=== PATIENT | female | born 1985 | race American Indian/Alaskan Native ===

== ENCOUNTER 2016-08-02 04:04 | Emergency (ER) | payer MEDICAID, OTHER ==
[2016-08-02 04:04] VITALS: BMI 23.3
[2016-08-02 04:10] VITALS: RESP 18; TEMP 97.8
--- NOTE | 2016-08-02 05:02 | ED PDOC ---
Arrival/HPI <Darrius Haynes - Last Filed: 08/02/16 06:38> - General Historian: Patient - History of Present Illness Time/Duration: 1-3 hours Symptom Onset: Sudden Severity Level: Mild <Elio Saavedra - Last Filed: 08/02/16 06:46> - General Chief Complaint: Anxiety Time Seen by Provider: 08/02/16 04:21 - History of Present Illness Narrative History of Present Illness (Text): 08/02/16 04:59 This is a 30 year old female presenting to the ED with complaint of anxiety and chest palpitations. The patient reports that she had palpitations that woke her from sleep. The patient also reports that she has right upper extremity weakness and tremulousness. The patient states that she has no issues moving the limb. In addition she mentions slight shortness of breath. The patient notes that she has experienced these symptoms in the past, however, they have resolved spontaneously. Patient denies fevers, chills, chest pain, cough, abdominal pain, changes in bowel/bladder, and extremity paresthesias. (Elio Saavedra) Past Medical History - Provider Review Nursing Documentation Reviewed: Yes - Past History Past History: No Previous - Tetanus Immunization Tetanus Immunization: Up to Date - Past Medical History Past Medical History: No Previous - Pulmonary Hx Asthma: Yes - Psychiatric Hx Depression: No Hx Substance Use: No - Past Surgical History Past Surgical History: No Previous - Anesthesia Hx Anesthesia: No - Suicidal Assessment Feels Threatened In Home Enviroment: No <Elio Saavedra - Last Filed: 08/02/16 06:46> Family/Social History - Physician Review Nursing Documentation Reviewed: Yes Family/Social History: No Known Family HX Smoking Status: Never Smoked Hx Alcohol Use: Yes Frequency of alcohol use: Socially Hx Substance Use: No Hx Substance Use Treatment: No <Elio Saavedra - Last Filed: 08/02/16 06:46> Allergies/Home Meds <Darrius Haynes - Last Filed: 08/02/16 06:38> <Elio Saavedra - Last Filed: 08/02/16 06:46> Allergies/Adverse Reactions: Allergies No Known Allergies Allergy (Verified 08/13/12 17:30) Home Medications: Home Meds Medication Instructions Recorded Confirmed Albuterol HFA [Ventolin HFA] 2 puff IH [id number] PRN 12/11/11 09/17/15 Ranitidine HCl [Ranitidine 75] 75 mg PO DAILY 09/17/15 09/17/15 Review of Systems - Physician Review All systems were reviewed & negative as marked: Yes - Review of Systems Constitutional: absent: Fatigue, Fevers Eyes: absent: Vision Changes, Eye Pain ENT: absent: Hearing Changes, Tinnitus Respiratory: SOB. absent: Cough, Sputum Cardiovascular: Palpitations. absent: Chest Pain, Syncope Gastrointestinal: absent: Abdominal Pain, Nausea, Vomiting Genitourinary Female: absent: Dysuria, Frequency Musculoskeletal: absent: Arthralgias, Back Pain Skin: absent: Rash, Pruritis Neurological: absent: Headache, Dizziness Endocrine: absent: Diaphoresis, Polyuria Hemo/Lymphatic: absent: Adenopathy Psychiatric: Anxiety. absent: Depression, Suicidal Ideation <Elio Saavedra - Last Filed: 08/02/16 06:46> Physical Exam Vital Signs Reviewed: Yes Temperature: Afebrile Blood Pressure: Normal Pulse: Regular Respiratory Rate: Normal Appearance: Positive for: Well-Appearing, Non-Toxic, Comfortable Pain Distress: None Mental Status: Positive for: Alert and Oriented X 3 - Systems Exam Head: Present: Atraumatic, Normocephalic Pupils: Present: PERRL Extroacular Muscles: Present: EOMI Conjunctiva: Present: Normal Mouth: Present: Moist Mucous Membranes Neck: Present: Normal Range of Motion. No: Lymphadenopathy Respiratory/Chest: Present: Clear to Auscultation, Good Air Exchange. No: Respiratory Distress, Accessory Muscle Use Cardiovascular: Present: Regular Rate and Rhythm, Normal S1, S2. No: Murmurs Abdomen: Present: Normal Bowel Sounds. No: Tenderness, Distention, Peritoneal Signs Upper Extremity: Present: Normal Inspection, Normal ROM, NORMAL PULSES, Neurovascularly Intact, Other (5/5 strength and full ROM symmetrically, no sensory deficits). No: Cyanosis, Edema, Tenderness, Swelling, Erythema Lower Extremity: Present: Normal Inspection, NORMAL PULSES, Normal ROM, Neurovascularly Intact. No: Edema, CALF TENDERNESS, Tenderness Neurological: Present: GCS=15, CN II-XII Intact, Speech Normal Skin: Present: Warm, Dry, Normal Color. No: Rashes Psychiatric: Present: Alert, Oriented x 3, Anxious <Elio Saavedra - Last Filed: 08/02/16 06:46> Vital Signs Temp Pulse Resp BP Pulse Ox 08/02/16 04:09 97.8 F 85 18 126/89 100 Medical Decision Making <DallasDarrius nunn - Last Filed: 08/02/16 06:38> Re-evaluation Time: 06:30 Reassessment Condition: Re-examined - EKG Interpretation Interpreted by ED Physician: Yes Type: 12 lead EKG <Elio Saavedra - Last Filed: 08/02/16 06:46> ED Course and Treatment: 08/02/16 05:17 Impression: Pt seen and evaluated with rn medical surgical. Pt presented for anxiety and chest palpitations. Pt states she felt tremulous and notes she has experienced similar symptoms in the past. Aware and agree with HPI, clinical findings, plan , and management. Plan: -- EKG -- Urine drug screen -- Reassess and disposition (Darrius Haynes) 08/02/16 05:04 Impression: This is a 30 year old female presenting to the ED with complaint of anxiety and chest palpitations. The patient appears anxious. She notes as much during conversation. Differential: Anxiety Panic Attack Symptomatic PVC vs PAC Plan: EKG UDS Urine Prior Visits: No inpatient admissions Progress Note: The patient was seen and examined at the bedside. The patient is visibly anxious. The patient has a negative EKG for PVC, PAC, or tachycardia, or irregularity. 08/02/16 06:44 UDS positive for cannabinoids. Patient re-examined, sleeping comfortably. No complaints since initial evaluation. Patient to be DC home with follow-up with PMD. (Elio Saavedra) - Lab Interpretations Lab Results: Lab Results 08/02/16 05:33: Urine HCG, Qual Negative, Urine Opiates Screen Negative, Urine Methadone Screen Negative, Ur Barbiturates Screen Negative, Ur Phencyclidine Scrn Negative, Ur Amphetamines Screen Negative, U Benzodiazepines Scrn Negative , U Oth Cocaine Metabols Negative, U Cannabinoids Screen Positive H - EKG Interpretation EKG Interpretation (Text): 08/02/16 05:09 NSR, no ST or T wanve changes (Elio Saavedra) - PA / BOOKY / Resident Statement MD/DO has reviewed & agrees with the documentation as recorded. / has examined the patient and agrees with the treatment plan. <Darrius Haynes - Last Filed: 08/02/16 06:38> Disposition/Present on Arrival <Darrius Haynes - Last Filed: 08/02/16 06:38> - Present on Arrival Any Indicators Present on Arrival: No History of DVT/PE: No History of Uncontrolled Diabetes: No Urinary Catheter: No History of Decub. Ulcer: No History Surgical Site Infection Following: None - Disposition Have Diagnosis and Disposition been Completed?: Yes Disposition Time: 05:30 Patient Plan: Discharge <Elio Saavedra - Last Filed: 08/02/16 06:46> - Disposition Diagnosis: Anxiety Disposition: HOME/ ROUTINE Patient Problems: Current Active Problems Problem Status Diagnosed Anxiety Acute Heart palpitations Acute Condition: GOOD Discharge Instructions (ExitCare): Anxiety (ED), Palpitations (ED) Print Language: LUXEMBOURGER Additional Instructions: 1.) Follow up with primary care doctor following discharge 2.) If symptoms return, please return to the ED for evaluation
[2016-08-02 07:25] VITALS: BP 132/74; PULSE 88; O2SAT 99
--- NOTE | 2016-08-02 15:42 | CARD ---
APPROVED REPORT EKG Measurement Heart [id number] VT [id number] <Conclusion> Normal sinus rhythm Normal ECG
== END 2016-08-02 07:25 | disposition home or self-care (01) ==
LOC: ED 04:04
DX: F41.9 Anxiety disorder, unspecified (principal); R00.2 Palpitations